=== PATIENT | male | born 1990 ===

== ENCOUNTER 2021-03-16 10:49 | Emergency (ER) | payer SELFPAY ==
[2021-03-16 10:56] VITALS: BP 140/80
[2021-03-16] MEDS ORDERED: IBUPROFEN 800 MG TAB PO STA (11:41)
[2021-03-16] MEDS ORDERED: oxyCODONE /ACETAMINOPHEN 5-325MG TAB PO ONE (11:42)
[2021-03-16] MEDS ORDERED: ONDANSETRON 4 MG ODT TAB PO ONE (11:42)
--- NOTE | 2021-03-16 11:42 | Emergency Department Report ---
ED General Adult HPI - General Chief complaint: Dental/Oral Stated complaint: MOUTH PAIN Time Seen by Provider: 03/16/21 11:01 Source: patient Mode of arrival: Ambulatory Limitations: No Limitations - History of Present Illness Initial comments: 30 yo AA M pt presents with complaints of dental pain and throat pain x yesterday. Denies any past medical history. Patient rates his pain as a 7/10 in severity and states goody's powders are not helping. He also denies any dysphagia, difficulty opening his jaw, or fever/chills/sweats. No past medical history per patient. Drug allergies include penicillin. Patient is not currently following with a dental specialist -: Sudden Severity scale (0 -10): 7 Quality: aching Consistency: constant - Related Data Previous Rx's Medication Instructions Recorded Last Taken Type Acetaminophen/Codeine [Tylenol 1 tab PO Q6H PRN 10 Days #8 tab 03/16/21 Unknown Rx /Codeine # 3 tab] Clindamycin [Clindamycin CAP] 300 mg PO Q6H 10 Days #40 capsule 03/16/21 Unknown Rx Ibuprofen [Motrin 800 MG tab] 800 mg PO Q8HR PRN #20 tablet 03/16/21 Unknown Rx Allergies Allergy/AdvReac Type Severity Reaction Status Date / Time penicillin V Allergy Unknown Verified 03/16/21 10:50 ED Review of Systems ROS: Stated complaint: MOUTH PAIN Other details as noted in HPI Constitutional: denies: chills, fever, malaise ENT: throat pain, dental pain Respiratory: denies: cough, shortness of breath Cardiovascular: denies: chest pain Gastrointestinal: denies: nausea, vomiting Skin: denies: rash, lesions, change in color Neurological: denies: headache ED Past Medical Hx - Past Medical History Previous Medical History?: No - Surgical History Past Surgical History?: No - Medications Home Medications: Home Medications Medication Instructions Recorded Confirmed Last Taken Type Acetaminophen/Codeine [Tylenol 1 tab PO Q6H PRN 10 Days #8 tab 03/16/21 Unknown Rx /Codeine # 3 tab] Clindamycin [Clindamycin CAP] 300 mg PO Q6H 10 Days #40 capsule 03/16/21 Unkno wn Rx Ibuprofen [Motrin 800 MG tab] 800 mg PO Q8HR PRN #20 tablet 03/16/21 Unknown Rx ED Physical Exam - General Limitations: No Limitations General appearance: alert, in no apparent distress - Head Head exam: Present: atraumatic, normocephalic - Eye Eye exam: Present: normal appearance - Expanded ENT Exam Expanded Teeth exam: Present: dental caries (Swelling and tenderness to palpation noted bilaterally with erythema to lower wisdom teeth/gums; no obvious dental abscesses noted or overlying facial swelling noted) Throat exam: Positive: normal inspection. Negative: tonsillar erythema, tonsillomegaly, tonsillar exudate, R peritonsillar mass, L peritonsillar mass - Neck Neck exam: Present: normal inspection. Absent: lymphadenopathy - Respiratory Respiratory exam: Absent: respiratory distress - Cardiovascular Cardiovascular Exam: Present: regular rate - Neurological Exam Neurological exam: Present: alert, oriented X3 - Psychiatric Psychiatric exam: Present: normal affect, normal mood - Skin Skin exam: Present: warm, dry, intact, normal color. Absent: rash ED Course Vital Signs 03/16/21 10:52 Temperature 98.7 F Pulse Rate 84 Respiratory 20 Rate Blood Pressure 140/80 [Right] O2 Sat by Pulse 100 Oximetry ED Medical Decision Making - Medical Decision Making 30 yo AA M pt presents with complaints of dental pain and throat pain x yesterday. Denies any past medical history. Patient rates his pain as a 7/10 in severity and states goody's powders are not helping. He also denies any dysphagia, difficulty opening his jaw, or fever/chills/sweats. No past medical history per patient. Drug allergies include penicillin. Patient is not currently following with a dental specialist Meds prescribed for dental infection. Recommend follow-up with dental specialist within 3 to 5 days, referrals provided. Patient is otherwise well- appearing, his vitals are within normal limits, he is stable for discharge home. Strict return precautions were discussed in detail with patient who verbalizes understanding Critical care attestation.: If time is entered above; I have spent that time in minutes in the direct care of this critically ill patient, excluding procedure time. ED Disposition Clinical Impression: Dental infection Disposition: 01 HOME / SELF CARE / HOMELESS Is pt being admited?: No Condition: Stable Instructions: Dental Abscess Prescriptions: Clindamycin [Clindamycin CAP] 300 mg PO Q6H 10 Days #40 capsule Ibuprofen [Motrin 800 MG tab] 800 mg PO Q8HR PRN #20 tablet PRN Reason: pain Acetaminophen/Codeine [Tylenol /Codeine # 3 tab] 1 tab PO Q6H PRN 10 Days #8 tab PRN Reason: Pain , Severe (7-10) Referrals: [facility] [Outside] - 3-5 Days
--- NOTE | 2021-03-16 11:50 | Emergency Department Report ---
ED General Adult HPI - General Chief complaint: Dental/Oral Stated complaint: MOUTH PAIN Time Seen by Provider: 03/16/21 11:01 Source: patient Mode of arrival: Ambulatory Limitations: No Limitations - History of Present Illness Severity scale (0 -10): 7 - Related Data Allergies Allergy/AdvReac Type Severity Reaction Status Date / Time penicillin V Allergy Unknown Verified 03/16/21 10:50 ED Review of Systems ROS: Stated complaint: MOUTH PAIN Other details as noted in HPI ED Past Medical Hx - Past Medical History Previous Medical History?: No - Surgical History Past Surgical History?: No ED Physical Exam - General Limitations: No Limitations ED Course Vital Signs 03/16/21 10:52 Temperature 98.7 F Pulse Rate 84 Respiratory 20 Rate Blood Pressure 140/80 [Right] O2 Sat by Pulse 100 Oximetry Critical care attestation.: If time is entered above; I have spent that time in minutes in the direct care of this critically ill patient, excluding procedure time. ED Disposition Condition: Stable
[2021-03-16] MEDS ORDERED: CLINDAMYCIN 150 MG CAP PO ONE (12:41)
== END 2021-03-16 12:26 | disposition home or self-care (01) ==
LOC: ED 10:49
DX: K04.7 Periapical abscess without sinus (principal); Z88.0 Allergy status to penicillin; Z79.899 Other long term (current) drug therapy
CPT/HCPCS: 99282; J3490; Q0162

== ENCOUNTER 2021-03-22 09:18 | Emergency (ER) | payer SELFPAY ==
[2021-03-22 10:13] VITALS: BP 144/92
--- NOTE | 2021-03-22 11:22 | Emergency Department Report ---
ED Rash HPI - HPI Chief Complaint: Skin Rash Stated Complaint: RASH Duration: 3 Days Location: Neck, Chest, Back, Abdomen, Upper Extremities, Lower Extremities Rash Symptoms: Yes Itching, No Facial Swelling, No Tongue/Oral Swelling, No Breathing Difficulties, No Choking Sensation, No Wheezing/Dyspnea, No Peeling, No Blistering, No Fever, No Lightheaded, No Malaise, No Myalgias Severity: moderate Other History: 30-year-old -[place] male presents to the emergency room for diffuse rash over upper extremities lower extremities back chest abdomen. Patient states that he was recently started on clindamycin for dental abscess. Patient states he has been taking that as well as ibuprofen. Patient reports only medication allergy he is aware of penicillin. He denies any fever chills. Patient reports he is taken nothing for the rash. States that it itches. Patient denies any shortness of breath no throat tightness no chest pain no wheezing at this chest. ED Review of Systems ROS: Stated complaint: RASH Other details as noted in HPI ED Past Medical Hx - Past Medical History Previous Medical History?: No - Surgical History Past Surgical History?: No - Medications Home Medications: Home Medications Medication Instructions Recorded Confirmed Last Taken Type Acetaminophen/Codeine [Tylenol 1 tab PO Q6H PRN 10 Days #8 tab 03/16/21 Unknown Rx /Codeine # 3 tab] Clindamycin [Clindamycin CAP] 300 mg PO Q6H 10 Days #40 capsule 03/16/21 Unknown Rx Ibuprofen [Motrin 800 MG tab] 800 mg PO Q8HR PRN #20 tablet 03/16/21 Unknown Rx Cetirizine HCl [Zyrtec 10mg tab] 10 mg PO QDAY #20 tablet 03/22/21 Unknown Rx Famotidine [Pepcid] 20 mg PO BID #20 tablet 03/22/21 Unknown Rx Prednisone [predniSONE 10 mg 10 mg PO .TAPER #1 tab.ds.pk 03/22/21 Unknown Rx (6-Day Pack, 21 Tabs)] Rash Exam - Exam General: Vital signs noted. No distress. Alert and acting appropriately. HEENT: No Periorbital Edema, No Conjuctival Injection, No Chemosis, No Perioral Edema, No Tongue Edema, No Uvular Edema, No Compromised Airway, No Drooling Lungs: Yes Good Air Exchange (Normal Breath Sounds), No Wheezes, No Ronchi, No Stridor, No Cough, No Labored Respirations, No Retractions, No Use of Accessory Muscles, No Other Abnormal Lung Sounds Heart: Yes Regular, No Murmur Skin: Yes Morbilliform rash Other: Positive: Abdomen Normal, Neurologic Normal, Musculoskeletal Normal ED Course Vital Signs 03/22/21 10:11 Temperature 98.7 F Pulse Rate 82 Respiratory 17 Rate Blood Pressure 144/92 O2 Sat by Pulse 98 Oximetry ED Medical Decision Making - Medical Decision Making 30-year-old -[place] male presents to the emergency room for diffuse rash over upper extremities lower extremities back chest abdomen. Patient states that he was recently started on clindamycin for dental abscess. Patient states he has been taking that as well as ibuprofen. Patient reports only medication allergy he is aware of Discussed with patient he needs to discontinue the clindamycin. Can take steroids Zyrtec and Pepcid. Can follow-up with his primary care provider or animal surgeon. Critical care attestation.: If time is entered above; I have spent that time in minutes in the direct care of this critically ill patient, excluding procedure time. ED Disposition Clinical Impression: Allergic reaction due to antibacterial drug Disposition: 01 HOME / SELF CARE / HOMELESS Is pt being admited?: No Does the pt Need Aspirin: No Condition: Stable Instructions: Drug Allergy, [id number] Additional Instructions: Complete medication as prescribed. I would like for you to discontinue the clindamycin. Need to follow-up with your dentist and an animal surgeon. Prescriptions: Famotidine [Pepcid] 20 mg PO BID #20 tablet Prednisone [predniSONE 10 mg (6-Day Pack, 21 Tabs)] 10 mg PO .TAPER #1 tab.ds.pk Cetirizine HCl [Zyrtec 10mg tab] 10 mg PO QDAY #20 tablet Referrals: [facility] [Provider Group] - 3-5 Days Forms: Work/School Release Form(ED) Time of Disposition: 11:22
== END 2021-03-22 11:55 | disposition home or self-care (01) ==
LOC: ED 09:18
DX: R21 Rash and other nonspecific skin eruption (principal); T50.995A Adverse effect of other drugs, medicaments and biological substances, initial encounter; Z88.0 Allergy status to penicillin; Z79.899 Other long term (current) drug therapy; Y92.89 Other specified places as the place of occurrence of the external cause
CPT/HCPCS: 99282